=== PATIENT | male | born 1995 | race Caucasian/White ===

== ENCOUNTER 2018-07-25 01:55 | Emergency (ER) | payer MEDICAID ==
[~2018-07-25] VITALS: Ht 170.2 cm; Wt 63.5 kg
--- NOTE | 2018-07-25 02:10 | NUR ---
ED Nurse Note: Patient presents with diffused rash at anterior and posterior torso. Reports puritis in the affected areas.
[2018-07-25 02:12] VITALS: BP 121/66
[2018-07-25] MEDS ORDERED: PREDNISONE20 MG ORAL (02:24)
[2018-07-25] MEDS ORDERED: RANITIDINE HCL150 MG ORAL (02:24)
[2018-07-25] MEDS ORDERED: DIPHENHYDRAMINE25 M1 ORAL (02:24)
--- NOTE | 2018-07-25 02:36 | NUR ---
ED Nurse Note: Patient discharged in stable condition, tolerated medication well. Verbalized understanding of discharge instructions. vital signs stable, departed with all belongings.
[2018-07-25 02:37] VITALS: BP 121/66
--- NOTE | 2018-07-25 04:26 | Emergency Room Report ---
History of Present Illness General Chief Complaint: Skin Rash/Abscess Source: Patient Present Illness HPI 22-year-old male presents ED for evaluation. Patient states he is having allergic reaction. States that he noticed it when he woke up morning. Notes a rash to his chest and abdomen and arms. States it is itchy. Denies throat swelling or tongue swelling. Denies shortness of breath. Denies any known food or drug allergies. States he has an allergy to cats. Denies any new food. Denies any new soaps or detergents. Denies any new clothing and sheets. No other aggravating relieving factors. Denies any other associated symptoms Allergies: Coded Allergies: No Known Allergies (Unverified , 07/25/18) Patient History Past Medical History: none Past Surgical History: none Pertinent Family History: none Social History: Denies: smoking, alcohol use, drug use Immunizations: UTD Reviewed Nursing Documentation: PMH: Agreed; PSxH: Agreed Nursing Documentation-PMH Past Medical History: No Stated History Review of Systems All Other Systems: negative except mentioned in HPI Physical Exam Vital Signs Date Time Temp Pulse Resp B/P (MAP) Pulse Ox O2 Delivery O2 Flow Rate FiO2 07/25/18 02:01 98.2 74 18 121/66 95 Room Air Sp02 EP Interpretation: reviewed, normal General Appearance: no apparent distress, alert, GCS 15, non-toxic Head: normocephalic, atraumatic Eyes: bilateral eye normal inspection, bilateral eye PERRL ENT: hearing grossly normal, normal pharynx, no angioedema, normal voice Neck: full range of motion, supple/symm/no masses Respiratory: chest non-tender, lungs clear, normal breath sounds, speaking full sentences Cardiovascular #1: regular rate, rhythm, no edema Cardiovascular #2: 2+ carotid (R), 2+ carotid (L), 2+ radial (R), 2+ radial (L) , 2+ dorsalis pedis (R), 2+ dorsalis pedis (L) Gastrointestinal: normal bowel sounds, non tender, soft, non-distended, no guarding, no rebound Rectal: deferred Genitourinary: normal inspection, no CVA tenderness Musculoskeletal: back normal, gait/station normal, normal range of motion, non- tender Neurologic: alert, oriented x3, responsive, motor strength/tone normal, sensory intact, speech normal Psychiatric: judgement/insight normal, memory normal, mood/affect normal, no suicidal/homicidal ideation Reflexes: 3+ bicep (R), 3+ bicep (L), 3+ tricep (R), 3+ tricep (L), 3+ knee (R) , 3+ knee (L) Skin: normal color, no rash, warm/dry, well hydrated, rash - diffuse urticaria to abdomen, arms and chest Lymphatic: no adenopathy Medical Decision Making Diagnostic Impression: Primary Impression: Urticaria ER Course Hospital Course 22-year-old male presents to ED complaining of diffuse rash x 1 day Differential diagnoses include: allergic reaction, angioedema Clinical course Patient placed on stretcher. tanbark peeler. After initial history, physical exam reveals male in no acute distress. There is diffuse urticaria noted to the chest, abdomen, arms and legs. No tongue swelling or throat swelling. No stridor. Lungs clear. Given prednisone, Benadryl, Pepcid here. Discussed findings with patient. No signs of anaphylaxis. No airway compromise. Unclear as to the source of the allergy but patient states that he does have an allergy to cats. Safe for discharge with close outpatient follow- up states he has a PMD i. I feel this is a highly complex case requiring extensive working including EKG/Rhythm strip, Xray/CT/US, Blood/urine lab work, repeat exams while in ED, and administration of strong opiates/narcotics for pain control, admission to hospital or close patient follow up. Diagnosis - urticaria Stable and discharged to home with prescriptions for zantac, benedryl, prednisone. Followup with PMD. Return to ED if symptoms recur or worsen Last Vital Signs Date Time Temp Pulse Resp B/P (MAP) Pulse Ox O2 Delivery O2 Flow Rate FiO2 07/25/18 02:37 98.2 89 18 121/66 95 Room Air Status: improved Disposition: HOME, SELF-CARE Condition: Stable Scripts Ranitidine Hcl* (ZANTAC*) 150 Mg Tablet 150 MG ORAL TWICE A DAY for 5 Days, #30 TAB Prov: Gildardo Malik MD 07/25/18 Diphenhydramine Hcl* (DIPHENHYDRAMINE HCL*) 25 Mg Capsule 25 MG ORAL Q6H PRN for Itching for 5 Days, #30 CAP 0 Refills Prov: Gildardo Malik MD 07/25/18 Prednisone* (PREDNISONE*) 20 Mg Tablet 40 MG ORAL DAILY, #10 TAB Prov: Gildardo Malik MD 07/25/18 Referrals: NON PHYSICIAN (PCP) Patient Instructions: Elissa, [id number] Gildardo Malik MD Jul 25, 2018 04:26
== END 2018-07-25 02:35 | disposition home or self-care (01) ==
LOC: EMR 02:20
DX: L50.9 Urticaria, unspecified (principal)
CPT/HCPCS: 99283; J7512

== ENCOUNTER 2018-08-02 19:23 | Emergency (ER) | payer MEDICAID ==
[~2018-08-02] VITALS: Ht 172.7 cm; Wt 64.4 kg
[~2018-08-02 19:23] MED LIST: DIPHENHYDRAMINE25 M1 ORAL; PREDNISONE20 MG ORAL; RANITIDINE HCL150 MG ORAL
--- NOTE | 2018-08-02 19:41 | NUR ---
ED Nurse Note: pt walked in c/o rash on BUE, upper trunk area, pt states he's been having issues for two wks and was here 12 days ago but ran out of medication. pt reports itchneses. Noted small flat papules and rash on BUE and upper trunk with redness, dry, intact, no open wound, no drainage nor sx infection noted. will cont monitor.
[2018-08-02 19:43] VITALS: BP 117/56
--- NOTE | 2018-08-02 19:49 | Emergency Room Report ---
History of Present Illness General Chief Complaint: Skin Rash/Abscess Source: Patient Present Illness HPI 22-year-old male with no significant past medical history complaining of few days of the same rash that he developed 10 days ago. Patient was here 10 days ago for uritacaria and allergic reaction to an unknown allergen was given prednisone and Benadryl.patient reports improvement of lesions after the course of treatment was taken. He denies exposure to any new allergens, any alcohol consumption or drug use. Patient started noticing similar lesions on both axillary and torso few days ago. Complains of pruritus, denies pain, fever or chills, shortness of breath, palpitation, chest pain, anaphylaxis. Patient has an appointment with his primary care provider in 2 days Allergies: Coded Allergies: No Known Allergies (Unverified , 07/25/18) Patient History Past Medical History: see triage record Past Surgical History: unable to obtain Pertinent Family History: none Immunizations: UTD Reviewed Nursing Documentation: PMH: Agreed; PSxH: Agreed Nursing Documentation-PMH Past Medical History: No Stated History Review of Systems All Other Systems: negative except mentioned in HPI Physical Exam Vital Signs Date Time Temp Pulse Resp B/P (MAP) Pulse Ox O2 Delivery O2 Flow Rate FiO2 08/02/18 19:31 98.2 86 14 117/56 97 Room Air Sp02 EP Interpretation: reviewed, normal General Appearance: normal inspection, well appearing, no apparent distress, alert Head: normocephalic, atraumatic Eyes: bilateral eye normal inspection, bilateral eye PERRL ENT: normal ENT inspection, normal pharynx Neck: normal inspection, full range of motion, supple Respiratory: normal inspection, chest non-tender, lungs clear, no wheezing Cardiovascular #1: normal inspection, regular rate, rhythm, no edema, no murmur Gastrointestinal: normal inspection, soft Musculoskeletal: normal inspection, back normal Neurologic: normal inspection, alert, oriented x3 Psychiatric: normal inspection, judgement/insight normal Skin: palpation normal, well hydrated, normal turgor, rash - uritacaria on axillary bilaterally and torso Lymphatic: normal inspection, no adenopathy Medical Decision Making PA Attestation all diagnosis and treatment plans were reviewed and discussed with my supervising physician Dr. Gomez Diagnostic Impression: Primary Impression: Allergic reaction Additional Impression: Hives ER Course 22-year-old male with no significant past medical history complaining of few days of the same rash that he developed 10 days ago. Patient was here 10 days ago for uritacaria and allergic reaction to an unknown allergen was given prednisone and Benadryl.patient reports improvement of lesions after the course of treatment was taken. He denies exposure to any new allergens, any alcohol consumption or drug use. Patient started noticing similar lesions on both axillary and torso few days ago. Complains of pruritus, denies pain, fever or chills, shortness of breath, palpitation, chest pain, anaphylaxis. Patient has an appointment with his primary care provider in 2 days Ddx considered but are not limited to allergic reaction, anaphylaxis, Vital signs: are WNL, pt. is afebrile H&PE are most consistent with uritacaria and allergic reaction to unspecified allergen ORDERS: pprednisone, Benadryl ED INTERVENTIONS: None required at this time. DISCHARGE: At this time pt. is stable for d/c to home. Will provide printed patient care instructions, and any necessary prescriptions. Care plan and follow up instructions have been discussed with the patient prior to discharge. last dose of steroids, follow with a primary care provider for testing of allergies and also autoimmune diseases Last Vital Signs Date Time Temp Pulse Resp B/P (MAP) Pulse Ox O2 Delivery O2 Flow Rate FiO2 08/02/18 19:43 98.2 86 16 117/56 98 Room Air Disposition: HOME, SELF-CARE Condition: Stable Scripts Diphenhydramine Hcl* (BENADRYL*) 25 Mg Capsule 25 MG ORAL Q6H PRN for Itching, #20 CAP Prov: Rajan Larsen 08/02/18 Prednisone* (PREDNISONE*) 10 Mg Tablet 10 MG ORAL BID for 5 Days, #10 TAB 0 Refills Prov: Rajan Larsen 08/02/18 Patient Instructions: Allergies, [id number], Hives, [id number] Additional Instructions: Prisca a primary care provider order allergy panel, tests for autoimmune diseases, resume internal cause intermittent and repeated allergic reaction. If difficulty swallowing or breathing return to the emergency room. Take steroids as directed this is going to be the last dose of steroids as he already took oral steroids 10 days ago and continuous daily dose of steroids can have secondary effects Rajan Larsen Aug 02, 2018 19:49
--- NOTE | 2018-08-02 19:50 | NUR ---
ED Nurse Note: pt cleared to be d/c per ER provider, pt discharge and aftercare instruction provided w/ prescription, pt education done via discussion and handout, pt advised to follow up with pcp/tax specialist or return to ed if sx worsen or new sx develop, pt verbalized understanding and agrees with plan, pt ambulatory w/ steady gait, resp even and unlabored on RA, skin intact, warm and dry, left with all belognings, wristband removed.
[2018-08-02] MEDS ORDERED: BENADRYL25 MG ORAL (19:52)
[2018-08-02] MEDS ORDERED: PREDNISONE10 MG ORAL (19:52)
[2018-08-02 19:55] VITALS: BP 116/50
== END 2018-08-02 20:00 | disposition home or self-care (01) ==
LOC: EMR 19:52
DX: T78.40XA Allergy, unspecified, initial encounter (principal); X58.XXXA Exposure to other specified factors, initial encounter; L50.9 Urticaria, unspecified
CPT/HCPCS: 99282

== ENCOUNTER 2019-05-16 13:20 | Emergency (ER) | payer MEDICAID ==
[~2019-05-16] VITALS: Ht 172.7 cm; Wt 68.0 kg
[~2019-05-16 13:20] MED LIST changes: +BENADRYL25 MG ORAL; +PREDNISONE10 MG ORAL
[2019-05-16] MEDS ORDERED: NKM (13:27)
[2019-05-16 13:52] VITALS: BP 124/84
--- NOTE | 2019-05-16 13:54 | NUR ---
ED Nurse Note:pt. c/o right lower jaw pain
--- NOTE | 2019-05-16 14:20 | Emergency Room Report ---
History of Present Illness General Chief Complaint: Pain Source: Patient Present Illness HPI 23 YO male presents to the ED c/o 02/10 in severity right lower molar pain. Pt. isn't able to get into the dentist. He has temporary crown on that tooth. Pt. reports pain in the jaw and "feels like its spreading down his neck" pt. denies fevers or chills. He denies cracked/broken dentition. Pt. reports Motrin at home is not working. No other aggravating or relieving factors at this time. Allergies: Coded Allergies: No Known Allergies (Unverified , 07/25/18) Patient History Past Medical History: see triage record Past Surgical History: none Pertinent Family History: none Reviewed Nursing Documentation: PMH: Agreed; PSxH: Agreed Nursing Documentation-PMH Past Medical History: No Stated History Review of Systems All Other Systems: negative except mentioned in HPI Physical Exam Vital Signs Date Time Temp Pulse Resp B/P (MAP) Pulse Ox O2 Delivery O2 Flow Rate FiO2 05/16/19 13:24 98.4 76 15 124/84 (97) 97 Room Air Sp02 EP Interpretation: reviewed, normal General Appearance: no apparent distress, alert, GCS 15, non-toxic Head: normocephalic, atraumatic Eyes: bilateral eye normal inspection, bilateral eye PERRL ENT: hearing grossly normal, normal voice, other - TTP Tooth no. 31, no fluctuance, temporary crown noted. erythema of the gum line. subparotid LAD. Neck: full range of motion, no meningismus, no bony tend Respiratory: lungs clear, normal breath sounds, speaking full sentences Cardiovascular #1: regular rate, rhythm Musculoskeletal: normal range of motion, gait/station normal, non-tender Neurologic: alert, motor strength/tone normal, oriented x3, sensory intact, responsive, speech normal Psychiatric: judgement/insight normal Skin: normal color, normal inspection Medical Decision Making PA Attestation Dr. Malik is my supervising Physician whom patient management has been discussed with. Diagnostic Impression: Primary Impression: Acute pericoronitis ER Course 23 YO male presents to the ED c/o 02/10 in severity right lower molar pain. Pt. isn't able to get into the dentist. He has temporary crown on that tooth. Pt. reports pain in the jaw and "feels like its spreading down his neck" pt. denies fevers or chills. He denies cracked/broken dentition. Pt. reports Motrin at home is not working. No other aggravating or relieving factors at this time. Ddx considered but are not limited to cellulitis, dental abscess, orbital cellulitis, d/l tooth, dental pain. trigeminal neuralgia Vital signs: are WNL, pt. is afebrile H&PE are most consistent with pericoronitis of Tooth no. 31 ORDERS: none required at this time, the diagnosis is clinical ED INTERVENTIONS: None required at this time. DISCHARGE: At this time pt. is stable for d/c to home. Will provide printed patient care instructions, and any necessary prescriptions. Care plan and follow up instructions have been discussed with the patient prior to discharge. Last Vital Signs Date Time Temp Pulse Resp B/P (MAP) Pulse Ox O2 Delivery O2 Flow Rate FiO2 05/16/19 13:52 98.4 72 15 124/84 97 Room Air Disposition: HOME, SELF-CARE Condition: Stable Scripts Ibuprofen* (MOTRIN*) 600 Mg Tablet 600 MG ORAL THREE TIMES A DAY, #30 TAB 0 Refills Prov: Janny Chandra 05/16/19 Acetaminophen With Codeine (T#3) (TYLENOL #3 TAB*) Y Tab 1 TAB ORAL Q6H PRN for For Pain, #15 TAB Prov: Janny Chandra 05/16/19 Referrals: [facility] Patient Instructions: Dental Pain, [id number] Additional Instructions: Take medications as directed. Follow up with a Dentist in 3-5 days, even if your symptoms have resolved. * * --Please review list of Dental clinics, if you do not already have a Dentist Return sooner to ED if new symptoms occur, or current symptoms become worse. Do not drink alcohol, drive, or operate heavy machinery while taking Tylenol # 3 as this may cause drowsiness. - Please note that this Emergency Department Report was dictated using [employer] tender technology software, occasionally this can lead to erroneous entry secondary to interpretation by the dictation equipment. Janny Chandra May 16, 2019 14:20
[2019-05-16] MEDS ORDERED: ACETAMINOPHEN-1 EAC1 ORAL (14:21)
[2019-05-16] MEDS ORDERED: IBUPROFEN600 MG ORAL (14:21)
[2019-05-16 14:30] VITALS: BP 124/84
--- NOTE | 2019-05-16 14:30 | NUR ---
ER DISCHARGE NOTE: Patient is cleared to be discharged per ERMD, pt is aox4, on room air, with stable vital signs. pt was given dc and prescription instructions, pt was able to verbalize understanding, pt is able to ambulate with steady gait. pt took all belongings.
[2019-05-17] MEDS ORDERED: LIDOCAINE VISC100 ML ORAL (16:46)
== END 2019-05-16 14:30 | disposition home or self-care (01) ==
LOC: EMR 14:20
DX: K05.20 Aggressive periodontitis, unspecified (principal)
CPT/HCPCS: 99282

== ENCOUNTER 2019-05-17 02:39 | Emergency (ER) | payer MEDICAID ==
[~2019-05-17] VITALS: Ht 172.7 cm; Wt 68.0 kg
[~2019-05-17 02:39] MED LIST changes: +ACETAMINOPHEN-1 EAC1 ORAL; +IBUPROFEN600 MG ORAL; +NKM
--- NOTE | 2019-05-17 02:54 | NUR ---
ED Nurse Note: Patient walked in from home d/t toothache 03/12. Patient stated he was at [facility] yesterday for same reason, no relief. Patient aao x 4 and ambulatory. No acute distress noted.
[2019-05-17 02:55] VITALS: BP 125/82
--- NOTE | 2019-05-17 02:55 | NUR ---
ED Nurse Note: ERMD at bedside.
[2019-05-17] MEDS ORDERED: Lidocaine 1% Plain 30 ml INJ ONE (03:00)
--- NOTE | 2019-05-17 03:01 | Emergency Room Report ---
History of Present Illness General Chief Complaint: Toothache Source: Patient Present Illness HPI Disclaimer: Please note that this report is being documented using [employer] technology. This can lead to erroneous entry secondary to incorrect interpretation by the dictating instrument. HPI: 23-year-old male presents for evaluation of right lower jaw pain. Seen in the emergency department yesterday complaining of pain over the bottom right back molar. There was no trauma. No recent cavities or other infections. He was discharged with ibuprofen and Tylenol 3's. He took 1 tablet of each and states it is not controlling his pain. He is unable to see his dentist as he says all clinics are closed on the weekends. Denies any fevers, difficulty swallowing, throat swelling, wheezing, difficulty breathing, chest pain or other symptoms at this time. PMH: None PSH: Multiple dental procedures Allergies: Denies Social Hx: Denies Allergies: Coded Allergies: No Known Allergies (Unverified , 07/25/18) Nursing Documentation-PMH Past Medical History: No Stated History Review of Systems All Other Systems: negative except mentioned in HPI Physical Exam Vital Signs Date Time Temp Pulse Resp B/P (MAP) Pulse Ox O2 Delivery O2 Flow Rate FiO2 05/17/19 02:47 97.9 77 16 122/72 (89) 97 Room Air General: Awake and alert, no acute distress HEENT: NC/AT. EOMI. no obvious dental fractures or dental caries. No evidence of gingival swelling, breakdown. Uvula midline, airway patent. Resp: Normal work of breathing Skin: Intact. No abrasions, laceration or rash over the exposed skin MSK: Normal tone and bulk. Moving all extremities. No obvious deformity. Neuro: Awake and alert. Mentating appropriately Medical Decision Making Diagnostic Impression: Primary Impression: Pain, dental ER Course 23-year-old male presents for evaluation of molar pain in the right lower mandible. No evidence of abscess, no gingival edema, no erythema but he has tenderness over the posterior molar on the right mandible. Patient required dentistry evaluation. States he was not getting appropriate relief from his pain medications though he was not dosing them appropriately at present. We went over proper dosing but an inferior alveolar nerve block was performed in the emergency department by me with good effect on his pain. He was given the names of several dentistry clinics in the area. He can follow-up as an outpatient. Discussed reasons to return to the emergency department. He understands and agrees with this treatment plan. Last Vital Signs Date Time Temp Pulse Resp B/P (MAP) Pulse Ox O2 Delivery O2 Flow Rate FiO2 05/17/19 02:47 97.9 77 16 122/72 (89) 97 Room Air Disposition: HOME, SELF-CARE Condition: Improved Ravi Smith MD May 17, 2019 03:01
--- NOTE | 2019-05-17 03:03 | NUR ---
ED Nurse Note: ERMD at bedside
[2019-05-17 03:14] VITALS: BP 127/85
--- NOTE | 2019-05-17 03:14 | NUR ---
ER DISCHARGE NOTE: Patient cleared for DC per ER provider, pt discharge and aftercare instructions provided, pt verbalized understanding. pt advised to follow up with pcp or return to ED if change in condition, pt verbalized understanding. Vital signs stable, ambulatory w/ steady gait, left w/ all belongings. Pt given information for dental clinics in the area. Pt stable upon discharge.
[2019-05-17] MEDS ORDERED: LIDOCAINE VISC100 ML ORAL (16:46)
== END 2019-05-17 03:14 | disposition home or self-care (01) ==
LOC: EMR 03:00
DX: R68.84 Jaw pain (principal)
CPT/HCPCS: 96374; J2001; Z7502; 99283

== ENCOUNTER 2019-05-17 16:26 | Emergency (ER) | payer MEDICAID ==
[~2019-05-17] VITALS: Ht 172.7 cm; Wt 68.0 kg
--- NOTE | 2019-05-17 16:45 | Emergency Room Report ---
History of Present Illness General Chief Complaint: Pain Source: Patient Present Illness HPI 23-year-old male with no significant past medical history here complaining of worsening dental pain. Patient was here first 1 day ago c/o dental pain and was prescribed Tylenol 3 and ibuprofen. Came back earlier this morning reporting that pain medication did not help, and nerve block was conducted and patient by Dr. Smith, and asked to follow-up with a dentist as well as contacting emergency department as it can have a dentist on staff such as [facility]. Patient is here today requesting another nerve block or something stronger for pain as reports that over the weekend the dental offices are not open. rating the pain 10 out of 10, denies fever and chills, pus drainage. Allergies: Coded Allergies: No Known Allergies (Unverified , 07/25/18) Patient History Past Medical History: see triage record Past Surgical History: none Pertinent Family History: none Immunizations: UTD Reviewed Nursing Documentation: PMH: Agreed; PSxH: Agreed Nursing Documentation-PMH Past Medical History: No Stated History Review of Systems All Other Systems: negative except mentioned in HPI Physical Exam Vital Signs Date Time Temp Pulse Resp B/P (MAP) Pulse Ox O2 Delivery O2 Flow Rate FiO2 05/17/19 16:36 98.4 74 16 125/80 (95) 97 Room Air Sp02 EP Interpretation: reviewed, normal General Appearance: no apparent distress, alert, GCS 15, non-toxic Head: normocephalic, atraumatic Eyes: bilateral eye normal inspection, bilateral eye PERRL ENT: hearing grossly normal, normal pharynx, no angioedema, normal voice Neck: full range of motion, supple, thyroid normal, supple/symm/no masses Respiratory: chest non-tender, lungs clear, normal breath sounds, no rhonchi, no retraction, no wheezing, speaking full sentences Cardiovascular #1: regular rate, rhythm, no edema, no murmur Gastrointestinal: non tender, soft Rectal: deferred Genitourinary: no CVA tenderness Musculoskeletal: back normal, normal range of motion, gait/station normal, non- tender Neurologic: alert, motor strength/tone normal, oriented x3, sensory intact, responsive, speech normal Psychiatric: judgement/insight normal, memory normal, mood/affect normal, no suicidal/homicidal ideation Skin: no rash Lymphatic: no adenopathy Medical Decision Making PA Attestation All my diagnosis and treatment plans were reviewed ad discussed with my supervising physician Dr. Malik Diagnostic Impression: Primary Impression: Pain, dental ER Course 23-year-old male with no significant past medical history here complaining of worsening dental pain. Patient was here first 1 day ago c/o dental pain and was prescribed Tylenol 3 and ibuprofen. Came back earlier this morning reporting that pain medication did not help, and nerve block was conducted and patient by Dr. Smith, and asked to follow-up with a dentist as well as contacting emergency department as it can have a dentist on staff such as [facility]. Patient is here today requesting another nerve block or something stronger for pain as reports that over the weekend the dental offices are not open. rating the pain 10 out of 10, denies fever and chills, pus drainage. Ddx considered but are not limited to : Dental abscess, dental pain, dental infection Vital signs: are WNL, pt. is afebrile H&PE are most consistent with: Dental pain ORDERS: Lidocaine viscous ED INTERVENTIONS: None required at this time. DISCHARGE: At this time pt. is stable for d/c to home. Will provide printed patient care instructions, and any necessary prescriptions. Care plan and follow up instructions have been discussed with the patient prior to discharge. I explained the patient at this time we cannot write for any more narcotics, and assess dental pain as this is to be addressed by primary care physician or dentist. Patient to continue taking ibuprofen 800 as well as Tylenol 3. Patient was prescribed supplies of Tylenol 3 for this weekend when he first came in 1 day ago. Last Vital Signs Date Time Temp Pulse Resp B/P (MAP) Pulse Ox O2 Delivery O2 Flow Rate FiO2 05/17/19 16:36 98.4 74 16 125/80 (95) 97 Room Air Disposition: HOME, SELF-CARE Condition: Stable Scripts Lidocaine HCl 2% Viscous (Lidocaine HCl 2% Viscous) 100 Ml Solution 15 ML ORAL QID, #100 ML Prov: Rajan Larsen 05/17/19 Patient Instructions: Dental Pain, Hphl-co-Equp Rajan Larsen May 17, 2019 16:45
[2019-05-17] MEDS ORDERED: LIDOCAINE VISC100 ML ORAL (16:46)
[2019-05-17 16:47] VITALS: BP 125/80
[2019-05-17 16:51] VITALS: BP 125/80
== END 2019-05-17 16:51 | disposition home or self-care (01) ==
LOC: EMR 16:50
DX: K08.89 Other specified disorders of teeth and supporting structures (principal)
CPT/HCPCS: 99282